=== PATIENT | male | born 1995 | race Caucasian/White ===

== ENCOUNTER 2020-06-18 03:40 | Emergency (ER) | payer BC ==
--- NOTE | 2020-06-18 04:06 | PDOC ---
Attending Attestation - Resident Resident Name: Joao Trujillo - ED Attending Attestation I have performed the following: I have examined & evaluated the patient, The case was reviewed & discussed with the resident, I agree w/resident's findings & plan - HPI HPI: 06/18/20 05:24 Pt comes with palpitaitons and chest discomfort. - Physicial Exam PE: 06/18/20 05:24 Agree with resident exam - Medical Decision Making 06/18/20 06:02 CBC is normal 06/18/20 06:02 CXR normal EKG NSR; however he has multiple flipped T waves 06/18/20 06:03 Comp is pending 06/18/20 19:39 Pt will be signed out to the day ER docs for further eval and workup Heart Score/ECG Review - ECG Intrepretation Rhythm: Regular Rhythm - Glide Glide: Normal - P and OK Delta Wave(s) Present: No WPW: No - ST and T Early Repolarization: No Non Specific ST-T Wave changes: No Flattened T Waves: No Prolonged Q-T Interval: No - ECG Impressions Normal ECG: Yes Non-specific ST Elevation: No Ischemic Changes: Yes (inferolateral flipped T waves) Bradycardia: No Torsades clifton Pointes: No Discharge - Discharge Information Problems reviewed: Yes Clinical Impression/Diagnosis: Palpitations with regular cardiac rhythm Condition: Stable Disposition: HOME - Follow up/Referral Referrals: Mick Duong MD [Staff Physician] - Otto Pettit MD [Staff Physician] - Clint Little MD [Staff Physician] - Nay Garrison MD [Staff Physician] - Harshad Lyons MD [Staff Physician] - Nick Gómez MD [Staff Physician] - Kevin Stewart MD [Staff Physician] - George Beltran MD [Staff Physician] - - Patient Discharge Instructions Patient Printed Discharge Instructions: DI for Palpitations Additional Instructions: You were seen and evaluated at [place] for palpitations. The blood tests are normal. You have a picture of the EKG. Please follow up with your perforator operator in regards to your symptoms and the EKG. If you do not have a perforator operator, referrals are provided below. Please return to the ER if you have chest pain, difficulty breathing, palpitations, if you pass out or feel like you are about to pass out or if any n ew or concerning symptom develops. Thank you - Post Discharge Activity
--- NOTE | 2020-06-18 04:20 | PDOC ---
History of Present Illness - General Stated Complaint: PALPITATIONS,CHILLS Time Seen by Provider: 06/18/20 04:15 History Source: Patient Exam Limitations: No Limitations - History of Present Illness Initial Comments: 06/18/20 04:15 HPI: 24 yo M pmh "leaky aortic valve" presenting an hour after a 5 minute episode of palpitations. Spontaneously resolved without intervention, no associated pain, endorses simultaneous shaking sensation and feeling of anxiety. Reports a remote seizure in 2012 at [facility] with negatige subsequent workup. Not on any medications, no allergies, no recent illness. Denies LOC, SOB, cough, fevers, chills, nausea, vomiting, diaphoresis. Past History - Travel History Traveled outside of the country in the last 30 days: No Close contact w/someone who was outside of country & ill: No - Medical History Allergies/Adverse Reactions: Allergies Allergy/AdvReac Type Severity Reaction Status Date / Time No Known Allergies Allergy Verified 06/18/20 04:17 Review of Systems - Review of Systems Able to Perform ROS?: Yes Is the patient limited Yoruba proficient: Yes Constitutional: No: Chills, Diaphoresis, Fever, Weakness HEENTM: No: Recent change in vision, Nose Congestion, Throat Pain Respiratory: No: Cough, Shortness of Breath, Wheezing Cardiac (ROS): Yes: Palpitations. No: Chest Pain, Edema, Irregular Heart Rate, Lightheadedness, Syncope, Chest Tightness ABD/GI: No: Constipated, Diarrhea, Nausea, Vomiting : No: Burning, Dysuria, Frequency Musculoskeletal: No: Back Pain, Muscle Pain, Muscle Weakness, Neck Pain Integumentary: No: Bruising, Pruritus, Rash Neurological: No: Headache, Numbness, Tingling, Weakness Psychiatric: No: Anxiety, Depression, Stressors, Change in Appetite Endocrine: No: Increased Thirst, Increased Urine, Change in Weight Hematologic/Lymphatic: No: Anemia, Blood Clots, Easy Bleeding All Other Systems: Reviewed and Negative *Physical Exam - Physical Exam 06/18/20 04:20 Vitals reviewed, AFVSS GEN: Well appearing, appears stated age, NAD, comfortable. AAOx3. HEENT: NCAT, EOMI, PERRL. Sclera anicteric, noninjected. No facial asymmetry. Moist mucous membranes. Normal voice. Trachea midline. CV: RRR, S1/S2, no murmurs / rubs / gallops appreciated. LUNG: CTABL, normal work of breathing. No wheezes, rales, rhonchi. No cough. S peaking full sentences. GI: Soft, NTND, +BS, no guarding, no rebound. No masses. EXTREMITIES: 2+ distal pulses. No clubbing / cyanosis / edema. No gross deformity in any extremity. SKIN: Warm, dry, no rashes appreciated, non-jaundiced. PSYCH: Normal mood and affect. Cooperative and appropriate. NEURO: CN grossly intact. Moving all extremities well. Normal strength and sensation grossly. ED Treatment Course - LABORATORY CBC & Chemistry Diagram: 06/18/20 05:11 06/18/20 05:11 - RADIOLOGY Radiology Studies Ordered: Category Date Time Status CHEST PA & LAT [RAD] Stat Radiology 06/18/20 04:00 Ordered Medical Decision Making - Medical Decision Making 06/18/20 04:17 24 yo M pmh "leaky aortic valve" presenting an hour after a 5 minute episode of palpitations. History notable for spontaneous resolution, comfortable now, no prior episodes. Exam notable for normal vitals, normal heart and lung exam. Concerning for palpitations, electrolyte disturbance, arrhythmia, occult infection. - CBC, CMP, Cardiac Profile - EKG, CXR Anticipated Dispo: Discharge 06/18/20 05:12 CXR without pneumothorax, effusion, infiltrates 06/18/20 05:17 EKbpm, NSR, normal axis, normal intervals with QTc 386, no ST elevations, notable for T wave inversions in II, III, aVF, V3, V4, V5, V6 No prior EKG for comparison 06/18/20 06:43 Lab within normal limits. Patient reports history of abnormal EKG, does not recall what was abnormal. Plan for repeat Troponin before disposition. Patient endorse to day team resident. Discharge - Discharge Information Problems reviewed: Yes Clinical Impression/Diagnosis: Palpitations with regular cardiac rhythm Condition: Stable Disposition: HOME - Admission No - Follow up/Referral - Patient Discharge Instructions Patient Printed Discharge Instructions: DI for Palpitations Additional Instructions: You were seen and evaluated at [place] for palpitations. - Post Discharge Activity
[2020-06-18 04:28] VITALS: PULSE 86; BMI 25.0
[2020-06-18 05:54] LABS: HEMATOCRIT 44.6 % (35.4-49); HEMOGLOBIN 15.2 GM/dL (11.7-16.9); MCH 29.7 pg (25.7-33.7); MCHC 34.1 g/dl (32.0-35.9); MEAN CELL VOLUME 87.1 fl (80-96); MEAN PLT VOLUME 8.8 fl (7.5-11.1); PLATELET COUNT 221 K/MM3 (134-434); RBC 5.12 M/mm3 (4.00-5.60); RDW 13.1 % (11.9-15.9); WHITE BLOOD COUNT 7.9 K/mm3 (4.0-10.0)
[2020-06-18 06:36] LABS: ALK PHOS 80 U/L (45-117); ANION GAP 8 MMOL/L (8-16); BILIRUBIN,TOTAL 0.2 mg/dL (0.2-1); BLOOD UREA NITROGEN 16.3 mg/dL (7-18); CALCIUM 8.5 mg/dL (8.5-10.1); CHLORIDE 107 mmol/L (98-107); CO2 25 mmol/L (21-32); CREATININE 1.2 mg/dL (0.55-1.3); POTASSIUM 4.1 mmol/L (3.5-5.1); SGOT/AST 19 U/L (15-37); SGPT/ALT 51 U/L (13-61); SODIUM 140 mmol/L (136-145); TOT PROT 7.5 g/dl (6.4-8.2)
[2020-06-18 07:03] LABS: GLUCOSE,RANDOM 97 mg/dL (74-106)
--- NOTE | 2020-06-18 07:04 | PDOC ---
*Physical Exam - Vital Signs Last Vital Signs Temp Pulse Resp BP Pulse Ox 98.3 F 86 20 150/80 100 06/18/20 03:45 06/18/20 03:45 06/18/20 03:45 06/18/20 03:45 06/18/20 05:49 ED Treatment Course - LABORATORY CBC & Chemistry Diagram: 06/18/20 05:11 06/18/20 05:11 - ADDITIONAL ORDERS Additional order review: Laboratory Results 06/18/20 05:11 Sodium 140 Potassium 4.1 Chloride 107 Carbon Dioxide 25 Anion Gap 8 BUN 16.3 Creatinine 1.2 Est GFR (CKD-EPI)AfAm 96.82 Est GFR (CKD-EPI)NonAf 83.54 Random Glucose 97 Calcium 8.5 Total Bilirubin 0.2 AST 19 ALT 51 Alkaline Phosphatase 80 Creatine Kinase 141 Troponin I < 0.02 Total Protein 7.5 Albumin 4.0 06/18/20 05:11 RBC 5.12 MCV 87.1 MCHC 34.1 RDW 13.1 MPV 8.8 Medical Decision Making - Medical Decision Making 06/18/20 04:17 24 yo M pmh "leaky aortic valve" presenting an hour after a 5 minute episode of palpitations. History notable for spontaneous resolution, comfortable now, no prior episodes. Exam notable for normal vitals, normal heart and lung exam. Conc erning for palpitations, electrolyte disturbance, arrhythmia, occult infection. - CBC, CMP, Cardiac Profile - EKG, CXR Anticipated Dispo: Discharge 06/18/20 05:12 CXR without pneumothorax, effusion, infiltrates 06/18/20 05:17 EKbpm, NSR, normal axis, normal intervals with QTc 386, no ST elevations, notable for T wave inversions in II, III, aVF, V3, V4, V5, V6 No prior EKG for comparison 06/18/20 06:43 Lab wnl. Patient reports history of abnormal EKG, does not recall what was abnormal. Plan for repeat Troponin before disposition. 06/18/20 07:04 Signed out from night team. -Pt stated that he has f/u appointment with electron beam welder next Friday. 06/18/20 09:21 -2nd trop negative, d/c home to follow up with cardiology. Discharge - Discharge Information Problems reviewed: Yes Clinical Impression/Diagnosis: Palpitations with regular cardiac rhythm Condition: Stable Disposition: HOME - Follow up/Referral Referrals: Mick Duong MD [Staff Physician] - Otto Pettit MD [Staff Physician] - Clint Little MD [Staff Physician] - Nay Garrison MD [Staff Physician] - Harshad Lyons MD [Staff Physician] - Nick Gómez MD [Staff Physician] - Kevin Stewart MD [Staff Physician] - George Beltran MD [Staff Physician] - - Patient Discharge Instructions Patient Printed Discharge Instructions: DI for Palpitations Additional Instructions: You were seen and evaluated at [place] for palpitations. The blood tests are normal. You have a picture of the EKG. Please follow up with your electron beam welder in regards to your symptoms and the EKG. If you do not have a electron beam welder, referrals are provided below. Please return to the ER if you have chest pain, difficulty breathing, palpitations, if you pass out or feel like you are about to pass out or if any new or concerning symptom develops. Thank you - Post Discharge Activity
[2020-06-18 08:56] VITALS: BP 133/85; TEMP 98.5
--- NOTE | 2020-06-18 12:40 | EKG ---
Test Reason : Blood Pressure : / mmHG Vent. Rate : 067 BPM Atrial Rate : 067 BPM P-R Int : 160 ms QRS Dur : 092 ms QT Int : 366 ms P-R-T Axes : 054 047 -18 degrees QTc Int : 386 ms NORMAL SINUS RHYTHM T WAVE ABNORMALITY, CONSIDER INFERIOR ISCHEMIA T WAVE ABNORMALITY, CONSIDER ANTEROLATERAL ISCHEMIA ABNORMAL ECG NO PREVIOUS ECGS AVAILABLE Confirmed by Ilan Gates ([id number]) on 06/18/2020 12:40:30 PM Referred By: Confirmed By:Ilan Gates
== END 2020-06-18 09:01 | disposition home or self-care (01) ==
LOC: JER 03:40
DX: R00.2 Palpitations (principal)
CPT/HCPCS: 36415; 71046-TC-FY; 80053; 82550; 84484; 85027; 93005; 93010; 99285-25

== ENCOUNTER 2022-01-12 20:34 | Emergency (ER) | payer BC ==
[2022-01-12 20:43] VITALS: BP 152/95; PULSE 78; TEMP 98.1; BMI 28.6
[2022-01-12] MEDS ORDERED: IBUPROFEN 200 MG TABLET PO ONE (22:57)
[2022-01-12] MEDS ORDERED: ACETAMINOPHEN 500 MG TABLET (FP) PO ONE (22:57)
== END 2022-01-13 00:37 | disposition home or self-care (01) ==
LOC: JER 20:34 → JERFT 20:34 → JER 01-13 00:37
DX: R51.9 Headache, unspecified (principal)
CPT/HCPCS: 99283-25

== ENCOUNTER 2022-12-30 11:35 | Emergency (ER) | payer BC ==
[2022-12-30 12:04] VITALS: BP 148/88; PULSE 82; RESP 16; TEMP 98.1; BMI 29.7
[2022-12-30] MEDS ORDERED: ACETAMINOPHEN 325 MG TABLET (FP) PO ONE (12:48)
[2022-12-30] MEDS ORDERED: IBUPROFEN 600 MG TABLET (FP) PO ONE ×2 (12:48→12:59)
[2022-12-30] MEDS ORDERED: ACETAMINOPHEN 325 MG TABLET (FP) ONE (12:59)
== END 2022-12-30 17:03 | disposition home or self-care (01) ==
LOC: JER 11:35
DX: R07.9 Chest pain, unspecified (principal); J06.9 Acute upper respiratory infection, unspecified; Z20.822 Contact with and (suspected) exposure to COVID-19
CPT/HCPCS: 0241U-QW; 71046-TC-FY; 93005; 93010; 99285-25

== ENCOUNTER 2023-08-23 19:19 | Emergency (ER) | payer BC ==
[2023-08-23 19:29] VITALS: BP 153/105; PULSE 91; RESP 18; TEMP 97.6; BMI 29.0
== END 2023-08-23 21:24 | disposition left against medical advice (07) ==
LOC: JER 19:19 → JERFT 19:19 → JER 21:24
DX: S61.221A Laceration with foreign body of left index finger without damage to nail, initial encounter (principal); X58.XXXA Exposure to other specified factors, initial encounter
CPT/HCPCS: 99281-25